=== PATIENT | female | born 2005 | race Caucasian/White ===

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

== ENCOUNTER 2024-03-21 16:30 | Emergency (ER) | payer BC, SELFPAY ==
[2024-03-21 16:47] VITALS: BP 115/65; PULSE 95; RESP 18; TEMP 37.2; O2SAT 100
--- NOTE | 2024-03-21 17:21 | ED.ABDPAIN ---
HPI - Abdominal Pain General Chief Complaint: Abdominal Pain Stated Complaint: Pain In Lower RT Side Time Seen by Provider: 03/21/24 17:21 Source: patient, RN notes reviewed and old records reviewed Mode of arrival: ambulatory Limitations: no limitations History of Present Illness HPI narrative: Patient presents with complaints of right lower quadrant abdominal pain that awakened her from sleep at about 4:00 a.m. this morning. She took Tylenol and Pepto-Bismol hoping that her symptoms would get better. She said she did have a little small window if improvement, tried to go to work. She reports that pain has been nagging all day. Pain has been bad enough that she has had no appetite, has not had anything to eat today. Symptoms worsened with movement. She is unsure of fever status, says that she had some chills last night when she woke up from her sleep. Denies any nausea or vomiting. Denies any change in bowel or bladder pattern. Has IUD in place, so unable to clearly define LMP. Related Data Home Medications Medication Instructions Recorded Confirmed bupropion HCl 150 mg 24 hr tablet, 150 mg PO DAILY 03/21/24 03/21/24 extended release Allergies Allergy/AdvReac Type Severity Reaction Status Date / Time No Known Allergies Allergy Mild Verified 03/21/24 16:42 Review of Systems Review of Systems: All systems reviewed & are unremarkable except as noted in HPI and below Constitutional: Constitutional: Reports no additional constitutional complaints ENT: Reports system reviewed and no additional complaints, except as documented Cardiovascular: Cardiovascular: Reports no additional cardiovascular complaints Respiratory: Respiratory: Reports no additional respiratory complaints Gastrointestinal: Gastrointestinal: Reports as per HPI, Reports no additional gastrointestinal complaints, Reports abdominal pain, Denies change in bowel habits, Denies change in stool character, Denies constipation, Denies diarrhea, Reports nausea and Denies vomiting Genitourinary: Genitourinary: Reports no additional female genitourinary complaints and Reports as per HPI [facility] Comments At the time of my signature, I reviewed and agree with the nursing past medical, surgical, social, and family history. There is no relevant family history pertinent to the patient complaint. Exam Const: General: cooperative, no acute distress, alert and awake Orientation/consciousness: oriented to person, oriented to place and oriented to time HENMT: Head: normal to inspection Resp: Effort & Inspection: normal respiratory effort and able to speak in complete sentences Auscultation: clear to auscultation bilaterally, no crackles, no rales, no rhonchi and no wheezes Cardio: Palpation: normal PMI Rate: regular rate Rhythm: regular rhythm Heart sounds: S1 normal heart sound present and S2 normal heart sound present GI: GI Palp: Yes abdominal tenderness (RLL), Yes Soft to palpation, Yes Guarding due to palpation present (GI) (RLL) and No Rigid due to palpation Auscultation: normal bowel sounds Neuro: General: oriented to person, oriented to place and oriented to time Cranial nerves: Yes CN's II-XII intact bilaterally Psych: Appearance: grossly normal Thought process: Normal thought process present Insight: Good insight present (Psych) Judgement: Good judgement present (Psych) Course Course Level of Care: Express Care Visit Vital Signs Vital signs: Vital Signs Temperature 98.9 F 03/21/24 16:47 Pulse Rate 95 03/21/24 16:47 Respiratory Rate 18 03/21/24 16:47 Blood Pressure 115/65 03/21/24 16:47 Pulse Oximetry 100 03/21/24 16:47 Oxygen Delivery Room Air 03/21/24 16:47 Temperature 98.9 F 03/21/24 16:47 Pulse Rate 95 03/21/24 16:47 Respiratory Rate 18 03/21/24 16:47 Blood Pressure 115/65 03/21/24 16:47 Pulse Oximetry 100 03/21/24 16:47 Oxygen Delivery Room Air 03/21/24 16:47 Reviewed Transfer Blake
== END 2024-03-21 17:30 | disposition short-term general hospital (02) ==
PROVIDERS: Emergency Provider Nurse Practitioner Family; PCP Physician Assistant
DX: R10.31 Right lower quadrant pain (principal); F41.9 Anxiety disorder, unspecified
CPT/HCPCS: 99212; G0463

== ENCOUNTER 2024-03-21 17:51 | Observation (INO) | payer BC, SELFPAY ==
--- NOTE | ~2024-03-21 | CT_ITS ---
EXAMINATION: CT abdomen pelvis w con DATE: 03/21/2024 21:55 INDICATION: RLQ abdominal pain TECHNIQUE: Computed tomography (CT) of the abdomen and pelvis was performed with 100 mL Omnipaque-350 intravenous contrast. Automated exposure control and iterative reconstruction technique were employe d. The dose-length product was 263.78 mGy-cm. COMPARISON: None. FINDINGS: Lower thorax: Unremarkable Liver: Normal. Biliary/Gallbladder: Gallbladder is normal. No bile duct dilation. Pancreas: No mass or duct dilation. Spleen: Normal. Adrenals:No mass. Kidneys: No suspicious mass, obstructing stone, or hydronephrosis. GI tract: Mild distal esophageal and gastric wall edema. No small or large bowel dilation. The append ix is dilated to 8 mm. No significant periappendiceal inflammatory change. Mesentery/Peritoneum: No ascites, mass, or free air. Retroperitoneum: No mass. Pelvis: Pelvic organs are within normal limits. Soft Tissues: Soft tissues and body wall unremarkable. Bones: No acute osseous finding. IMPRESSION: Mild esophagitis/gastritis. Dilated appendix without significant surrounding inflammatory change, may represent early appendiciti s in the appropriate clinical context. Reviewed, dictated and finalized at location K. IMPRESSION: Mild esophagitis/gastritis. Dilated appendix without significant surrounding inflammatory change, may repre sent early appendicitis in the appropriate clinical context.
[2024-03-21 17:53] VITALS: BP 113/91; PULSE 90; RESP 18; TEMP 36.6; O2SAT 100
--- NOTE | 2024-03-21 18:16 | ED.ABDPAIN ---
HPI - Abdominal Pain General Chief Complaint: Abdominal Pain <Aleshia Kern APRN - Last Filed: 03/21/24 20:21> Stated Complaint: Abdominal pain <Aleshia Kern APRN - Last Filed: 03/21/24 20:21> Time Seen by Provider: 03/21/24 19:30 <Aleshia Kern APRN - Last Filed: 03/21/24 20:21> Focused HPI:Patient is a 18-year-old female who presents to the ER with right lower quadrant pain. She reports the pain started this morning. Patient went to urgent care and they advised her to come to the ER. She endorses right lower quadrant pain that is constant. Patient also endorses back pain. She reports that she has no history of ovarian cysts and still has her appendix. Patient has no pertinent medical history to this ER visit. GENERAL: Well-appearing, well-nourished, and in no acute distress. HEAD: Normocephalic, atraumatic. CHEST: Clear to auscultation. ?No respiratory distress. No CVA tenderness. HEART: Regular rate and rhythm.? ABDOMEN: Tender RLQ with palpation, positive Psoas, positive McBurneys, +BS x 4 quadrants NEURO: ?Alert and oriented x3. Patient screened in triage and initial orders placed.? ?Additional care and disposition to be based upon?diagnostic testing and treatment. <Aleshia Kern APRN - Last Filed: 03/21/24 20:21> Related Data Home Medications: Home Medications Medication Instructions Recorded Confirmed bupropion HCl 150 mg 24 hr tablet, 150 mg PO DAILY 03/21/24 03/22/24 extended release <Aleshia Kern APRN - Last Filed: 03/21/24 20:21> Allergies/Adverse Reactions: Allergies Allergy/AdvReac Type Severity Reaction Status Date / Time No Known Allergies Allergy Mild Verified 03/21/24 16:42 <Aleshia Kern APRN - Last Filed: 03/21/24 20:21> Review of Systems Review of Systems: All systems as dictated in HPI <Bi Gutierrez PA-C - Last Filed: 03/22/24 03:51> PMFSH Family History Family History: Family History (Updated 03/22/24 @ 01:46 by Vee Villegas) Grandparent Cerebrovascular accident Acute myocardial infarction Grandparent Congestive heart failure Grandparent Brain tumor <Aleshia Kern APRN - Last Filed: 03/21/24 20:21> Social History Social History: Social History Smoking status: Never smoker Alcohol intake: never Substance use: never Do You Feel Safe in your Home?: Yes Lack of Transportation: No Lack of Food: Never True Current Housing: I Have Housing Concerned About Future Housing: No Difficulty Paying Gas/Electric Bills: No Difficulty Paying for Meds: No Currently Unemployed: No Education: High School Diploma/GED Difficulty w/ Childcare or Family Care: No Spiritual care concerns: No <Aleshia Kern APRN - Last Filed: 03/21/24 20:21> Exam Narrative: GENERAL: Well-appearing, well-nourished, and in no acute distress. HEAD: Normocephalic, atraumatic. EYES: PERRLA and EOMI. ENT: Nares clear, no rhinorrhea or epistaxis. Mucous membranes moist. Oropharynx without tonsillar hypertrophy exudate or other lesions. NECK: Supple. No adenopathy or masses. CHEST: No respiratory distress. Clear to auscultation. No wheezes rales or rhonchi HEART: Regular rate and rhythm. No murmur heard. Normal peripheral pulses. ABDOMEN: Point tenderness at McBurney's point. Positive psoas sign. Negative Alvarez sign. Soft, nondistended, normal active bowel sounds. MSK: Normal range of motion. No edema. SKIN: Warm, dry, no rash. NEURO: Alert and oriented x4. No focal deficits. PSYCH: Normal mood and affect. <Bi Gutierrez PA-C - Last Filed: 03/22/24 03:51> Course DELPHI PROGRAMMER/PA Physician Supervision Patient's HPI, Exam, and MDM were reviewed and I agreed with the workup and disposition done in the emergency department by the MLP. Patient was evaluated independently and general surgery was contacted by the midlevel provider. Patricia
[2024-03-21 21:11] LABS: Basophils Percent Auto 0.3 % (0.2-1.2); Eosinophils Absolute Auto 0.1 K/mm3 (0-0.3); Eosinophils Percent Auto 0.7 % (0-4.4); Hematocrit 41.1 % (37.0-47.0); Hemoglobin 13.3 g/dL (12.0-15.0); Immature Granulocyte Absolute 0.03 K/mm3 (0.00-0.031); Immature Granulocyte Percent A 0.2 % (0-0.5); Lymphocytes Absolute Auto 2.99 K/mm3 (0.9-3.2); Lymphocytes Percent Auto 24.9 % (18.3-44.2); Mean Corpuscular HGB Conc 32.4 g/dl (32-36); Mean Corpuscular Hemoglobin 28.2 pg (26-34); Mean Corpuscular Volume 87.3 fl (80-100); Monocytes Absolute Auto 0.8 K/mm3 (0.1-0.6); Monocytes Percent Auto 6.8 % (2.6-8.5); Neutrophils Absolute Auto 8.1 K/mm3 (1.3-6.7); Neutrophils Percent Auto 67.1 % (45.5-73.1); Platelet Count Result 263 k/mm3 (150-375); Red Blood Count 4.71 M/mm3 (4.2-5.4); Red Cell Distribution Width 14.2 % (11.5-14.5)
[2024-03-21 21:12] LABS: Add Urine Microscopic? NO; Appearance Urine Clear (Clear); Bilirubin Urine Negative (Negative); Blood Urine Negative (Negative); Color Urine Yellow (Yellow); Glucose Urine UA Negative (Negative); Ketones Urine 3+ mg/dL (Negative); Leukocyte Esterase Ur Negative LEU/UL (Negative); Nitrate Urine Negative (Negative); Protein Urine Negative (Negative); Specific Grav Ur 1.022 (1.001-1.035); pH Urine 7.5 (5.0-9.0)
[2024-03-21 21:22] LABS: Alanine Aminotransferase 14 U/L (6-35); Albumin Level 4.8 g/dL (3.7-5.6); Alkaline Phosphatase 80 U/L (45-116); Anion Gap 13 mmol/L (4-12); Aspartate Amino Transferase 24 U/L (14-36); Bilirubin,Total 1.1 mg/dL (0.2-1.3); Blood Urea Nitrogen 9 mg/dL (8-21); Calcium 9.3 mg/dL (8.9-10.7); Carbon Dioxide 23 mmol/L (22-30); Chloride 102 mmol/L (98-107); Estimated CRCL calculation 115 ml/min; Estimated Glomerular Filt Rate > 60; Glucose 72 mg/dL (65-110); Lipase 124 U/L (23-300); Partial Thromboplastin Time 32.4 Seconds (22.3-36.8); Potassium 3.7 mmol/L (3.4-5.0); Prothrombin Time 14.1 Seconds (11.1-14.7); Sodium 138 mmol/L (134-143)
[2024-03-21 21:23] LABS: Lactic Acid Reflex 1.1 mmol/L (0.7-2.0)
[2024-03-21 23:14] VITALS: BP 119/68; PULSE 99; RESP 18; O2SAT 100
[2024-03-21] MEDS: ONDANSETRON INJ 4 MG/2 ML VIAL IV PUSH ×2 (23:20→23:38)
[2024-03-21] MEDS: SODIUM CHLORIDE 0.9% IV 1,000 ML 999 ML IV CONT (23:20)
[2024-03-21] MEDS: PIPERACILLN/TAZ 3.375GM/NS50ML 3.375 GM/50 ML BAG IVPB (23:52)
[2024-03-22] VITALS (11 sets, daily range): BP systolic 96–115; BP diastolic 54–84; PULSE 57–101; RESP 12–22; TEMP 36.3–36.7; O2SAT 99–100; BMI 21.5
--- NOTE | 2024-03-22 | PC.NURSE ---
Pt states refused pain medications but wanted to have them ordered just incase.
[2024-03-22] MEDS: SODIUM CHLORIDE 0.9% IV 1,000 ML 125 ML IV CONT (01:00)
--- NOTE | 2024-03-22 01:43 | ADMGEN ---
This patient, Poppy Hutchinson, was admitted to [facility] Surg Room 301-01. Patient/family oriented to hospital policies and general routines including ID bracelet, bed and alarms, visiting hours, pain management, procedures, bathroom and other care routines, personal items, smoking policy, room service/diet, and visiting hours. Information on how to activate the Rapid Response Team has been discussed. Patient/Family are encouraged to report perceived risks to care and to ask questions if they do not understand what they are told or what they should do.
[2024-03-22] MEDS: PIPERACILLN/TAZ 3.375GM/NS50ML 3.375 GM/50 ML BAG IVPB ×2 (05:43→11:48)
--- NOTE | 2024-03-22 06:00 | ECG_ITS ---
Test Date: 2024-03-22 00:13:09 Measurements Intervals [place] Rate: 68 P: 47 WI: 141 QRS: 48 QRSD: 90 T: 52 QT: 398 QTc: 425 Interpretive Statements SINUS RHYTHM NORMAL ECG No previous ECG available for comparison Electronically Signed On 03-22-2024 09:16:40 CDT by Bam Escalera D.O.
--- NOTE | 2024-03-22 10:23 | PM.SD2 ---
Same Day Admit/Disch: [facility] History of Present Illness Chief complaint: Appendicitis Narrative: Poppy Hutchinson is a 18 year old female who began having fairly central abdominal pain that, over time, moved to the right lower quadrant. The pain was persistent. She went to an urgent care who advised her to go to the emergency room. In the emergency room she was noted to have right lower quadrant tenderness [place] [phone] scan showed an 8 mm appendix with suggestion of early appendicitis. Patient has been observed overnight. She continues to have right lower quadrant pain. Her pain is not severe but has been persistent. After evaluation and discussion, she is taken to surgery now for laparoscopic appendectomy. [facility], [facility] Family History Family History Grandparent Cerebrovascular accident Acute myocardial infarction Grandparent Congestive heart failure Grandparent Brain tumor Social History Social History Smoking status: Never smoker Alcohol intake: never Substance use: never Do You Feel Safe in your Home?: Yes Lack of Transportation: No Lack of Food: Never True Current Housing: I Have Housing Concerned About Future Housing: No Difficulty Paying Gas/Electric Bills: No Difficulty Paying for Meds: No Currently Unemployed: No Education: High School Diploma/GED Difficulty w/ Childcare or Family Care: No Spiritual care concerns: No Same Day Admit/Disch: Med Pre-admit Medications Home Medications Medication Instructions Recorded Confirmed Type bupropion HCl 150 mg 24 hr tablet, 150 mg PO DAILY 03/21/24 03/22/24 History extended release oxycodone-acetaminophen 5 mg-325 0.5 - 1 tablet PO Q6H PRN pain #10 03/22/24 Rx mg tablet tabs Review of Systems Review of Systems All systems reviewed & are unremarkable except as noted in HPI and below (HPI) Exam Const: General: comfortable, no acute distress, alert and awake HENMT: Head: normocephalic and atraumatic Mouth: Yes Normal oral and palatal mucosa present Eyes: Conjunctivae: conjunctivae normal Pupils: Equal, round and reactive pupils present EOM: EOMs intact bilaterally Neck: Neck: normal visual inspection, no lymphadenopathy and nontender Resp: Effort & Inspection: normal respiratory effort Auscultation: clear to auscultation bilaterally Cardio: Rate: regular rate Rhythm: regular rhythm Heart sounds: no gallops, no murmurs and no rubs GI: Inspection: normal to inspection, no edema, non-distended, scaphoid and no scars GI Palp: Yes Soft to palpation, Yes Tenderness to palpation present (GI) (With guarding), Yes Guarding due to palpation present (GI), No Hepatomegaly present, No Splenomegaly present, No Hernia present, No Palpable mass present, Yes Rebound tenderness present and Yes Other GI palpation findings present (Left lower quadrant tenderness referred to the right lower quadrant) Auscultation: normal bowel sounds Skin: Lesions: no lesions Rashes: no rashes Neuro: General: no focal motor deficits and CN's II-XI intact bilaterally Cranial nerves: Yes Equal, round and reactive pupils present, Yes Bilaterally intact EOM present, Yes facial symmetry and Yes Midline tongue present Speech: normal speech Motor exam (neuro): 5/5 motor strength present throughout and Motor abnormalities not present Extrem: General: no clubbing, cyanosis or edema and edema Psych: Affect: normal affect Thought process: Normal thought process present Insight: Good insight present (Psych) DS: Data Data Completed and Pending Labs on day of discharge: Labs from last 24 hours 03/21/24 03/21/24 21:03 20:59 WBC 12.0 H RBC 4.71 Hgb 13.3 Hct 41.1 MCV 87.3 MCH 28.2 MCHC 32.4 RDW 14.2 Plt Count 263 MPV 11.0 H Immature Gran % (Auto) 0.2 Neut % (Auto) 67.1 Lymph % (Au
--- NOTE | 2024-03-22 10:26 | WPDANESEPPF ---
Anes - Initial Pre Proc Eval Procedure: Operation Date: 03/22/24 11:00 Proposed Procedures p Laparoscopic Appendectomy, Possible Open - Kurtis Savage MD Date/Time: 03/22/24 10:26 Surgeon: Kurtis Savage MD Pre Op Diagnosis: Appendicitis Patient Data Age: 18 Gender: F Height: 1.65 m Weight: 58.7 kg Last Vital Signs Temp 36.3 C L 03/22/24 06:00 Pulse 78 03/22/24 06:00 Resp 12 03/22/24 06:00 BP 100/55 L 03/22/24 06:00 Pulse Ox 100 03/22/24 06:00 O2 Del Method Room Air 03/22/24 08:00 Allergies Allergy/AdvReac Type Severity Reaction Status Date / Time No Known Allergies Allergy Mild Verified 03/21/24 16:42 Home Medications Medication Instructions Recorded Confirmed Type bupropion HCl 150 mg 24 hr tablet, 150 mg PO DAILY 03/21/24 03/22/24 History extended release Laboratory Tests 03/21/24 03/21/24 20:59 21:03 WBC 12.0 H K/mm3 (4.5-10.0) RBC 4.71 M/mm3 (4.2-5.4) Hgb 13.3 g/dL (12.0-15.0) Hct 41.1 % (37.0-47.0) MCV 87.3 fl (80-100) MCH 28.2 pg (26-34) MCHC 32.4 g/dl (32-36) RDW 14.2 % (11.5-14.5) Plt Count 263 k/mm3 (150-375) MPV 11.0 H fl (7.4-10.4) Immature Gran % (Auto) 0.2 % (0-0.5) Neut % (Auto) 67.1 % (45.5-73.1) Lymph % (Auto) 24.9 % (18.3-44.2) [place] % (Auto) 6.8 % (2.6-8.5) Eos % (Auto) 0.7 % (0-4.4) Baso % (Auto) 0.3 % (0.2-1.2) Lymph # (Auto) 2.99 K/mm3 (0.9-3.2) [place] # (Auto) 0.8 H K/mm3 (0.1-0.6) Eos # (Auto) 0.1 K/mm3 (0-0.3) Baso # (Auto) 0.0 K/mm3 (0.0-0.1) Abs Immat Gran (auto) 0.03 K/mm3 (0.00-0.031) Absolute Neuts (auto) 8.1 H K/mm3 (1.3-6.7) Absolute Nucleated RBC 0.000 K/mm3 (0.0-0.012) Nucleated RBC % 0.0 % (0.0-0.2) PT 14.1 Seconds (11.1-14.7) INR 1.0 APTT 32.4 Seconds (22.3-36.8) Sodium 138 mmol/L (134-143) Potassium 3.7 mmol/L (3.4-5.0) Chloride 102 mmol/L (98-107) Carbon Dioxide 23 mmol/L (22-30) Anion Gap 13 H mmol/L (4-12) BUN 9 mg/dL (8-21) Creatinine 0.60 L mg/dL (0.7-1.0) Estim Creat Clear Calc 115 ml/min Estimated GFR > 60 (59 - ) Glucose 72 mg/dL (65-110) Lactic Acid 1.1 mmol/L (0.7-2.0) Calcium 9.3 mg/dL (8.9-10.7) Total Bilirubin 1.1 mg/dL (0.2-1.3) AST 24 U/L (14-36) ALT 14 U/L (6-35) Alkaline Phosphatase 80 U/L (45-116) Total Protein 8.0 g/dL (6.3-8.6) Albumin 4.8 g/dL (3.7-5.6) Lipase 124 U/L (23-300) Urine Color Yellow (Yellow) Urine Appearance Clear (Clear) Urine pH 7.5 (5.0-9.0) Ur Specific [place] 1.022 (1.001-1.035) Urine Protein Negative mg/dL (Negative) Urine Glucose (UA) Negative mg/dL (Negative) Urine Ketones 3+ H mg/dL (Negative) Ur Blood (Man) Negative (Negative) Urine Nitrate Negative (Negative) Urine Bilirubin Negative (Negative) Urine Urobilinogen 1.0 mg/dL (<2.0) Leukocyte Esterase Rfl Negative DANTE/UL (Negative) Patient hx anesthesia problems: none Family hx anesthesia problems: none Results Review: All pre-operative results and documents have been reviewed as part of the pre-operative evaluation. [facility] Family History Family History Grandparent Cerebrovascular accident Acute myocardial infarction Grandparent Congestive heart failure Grandparent Brain tumor Social History Social History Smoking status: Never smoker Alcohol intake: never Substance use: never Do You Feel Safe in your Home?: Yes Lack of Transportation: No Lack of Food: Never True [place]
--- NOTE | 2024-03-22 10:30 | WPDHPUPDATE1 ---
History and Physical Update Update Date/Time: 03/22/24 10:30 History and Physical has been reviewed, including an updated exam of the patient. There are NO changes in the patient's condition. Risks, benefits, and alternatives have been discussed and questions answered. Patient agrees to proceed with procedure.
[2024-03-22] MEDS: BUPIVACAINE/EPINEPHRINE 0.5% 50 ML VIAL 20 ML INFILTRATE (10:58)
--- NOTE | 2024-03-22 11:13 | P.OP_ITS ---
Procedure Note - Detailed Date of Procedure 03/22/24 Pre-op Diagnosis Appendicitis Post-op Diagnosis Same Procedure Performed Laparoscopic appendectomy Surgeon Kurtis Savage MD Bilingual Executive Assistant [place] Anesthesia General and Local Indications Patient had right lower quadrant pain with guarding and rebound tenderness. [place] [phone] scan showed evidence of early acute appendicitis. She chose to proceed with surgery rather than medical therapy. Findings Early acute appendicitis in the distal 2/3 of the appendix Description of Procedure Patient was taken to surgery and induced into general anesthesia. The abdomen is prepped and draped. Trocars were placed in usual fashion using [email or web address] optical trocars and a 5 mm camera. Patient was placed in Trendelenburg with the right-side elevated. The appendix was found easily. It was definitely inflamed over its distal half to 2/3 but the proximal portion the appendix looked relatively normal. There was no evidence of perforation, abscess, or gangrenous change. The appendix was elevated and exposed. Cautery was used to carefully divide the mesoappendix. The appendiceal artery was thoroughly cauterized and divided. We continued and eventually skeletonized the base of the appendix. The base the appendix was then ligated with a Vicryl endoloop. The appendix was amputated just above the ligature and the mucosa of the appendiceal stump was cauterized. The appendix was placed immediately in an Endo-Catch bag and retrieved through the 10 11 left lower quadrant trocar site. We then replaced this trocar and reviewed the operative area of dissection as well as the appendiceal stump. There was no evidence of bleeding or other problems. We then evacuated CO2 and removed the trocar sleeves. Skin wounds were closed with subcuticular 4-0 Monocryl skin suture. The wounds were dressed with Exofin surgical adhesive. Patient was awakened and taken to recovery in good condition. Sponge and needle counts were correct x2. Estimated Blood Loss -5 Pathology Yes (Appendix) Complications None Condition Stable Disposition PACU [facility] Billing Surgery - Charge Forward: Surgery Billing (Laparoscopic appendectomy)
[2024-03-22] MEDS: LACTATED RINGERS 1,000 ML 30 ML IV CONT (11:28)
--- NOTE | 2024-03-22 13:59 | ECG_ITS ---
Test Date: 2024-03-22 14:09:11 Measurements Intervals [place] Rate: 75 P: 47 MN: 137 QRS: 16 QRSD: 90 T: 47 QT: 373 QTc: 419 Interpretive Statements SINUS RHYTHM WITH SINUS ARRHYTHMIA BASELINE ARTIFACT- I, II, AVR, AVL, AVF NORMAL ECG Compared to ECG 03/22/2024 00:13:09 No significant changes Electronically Signed On 03-22-2024 16:44:48 CDT by Bam Escalera D.O.
[2024-03-22] MEDS: ACETAMINOPHEN 500 MG TABLET PO (14:06)
--- NOTE | 2024-03-22 15:59 | PC.NURSE ---
at 1350 pt complained of chest pain/pressure. Pt was informed that sometimes the gas they use in surgery will cause pt to have gas pains in chest. Pt vitals normal. informed surgeon about chest pain. surgeon stated that it was probably gas pain but to order ECG. If ECG ok and pt is having minimal pain, ok to discharge. ECG obtained and it was not concerning. also pt having minimal pain. pt was then stated she would like to d/c. Pt was instructed that sometimes walking may help. pt walked halls before d/c.
[2024-03-24 14:24] LABS: BEDSIDEPREGUCG Negative (Negative)
== END 2024-03-22 14:36 | disposition home or self-care (01) ==
LOC: ANHED 23:55 → ANH3MEDSUR 03-22 00:33 → ANHED 03-24 09:56 → ANH3MEDSUR 03-24 09:57
PROVIDERS: Registered Nurse; Admitting Provider Surgery; Emergency Provider Physician Assistant; PCP Physician Assistant; Visit Provider Surgery
PROC: 0DTJ4ZZ Resection of Appendix, Percutaneous Endoscopic Approach (ICD-10-PCS; CPT 44970; principal; 2024-03-22 11:00)
DX: K35.30 Acute appendicitis with localized peritonitis, without perforation or gangrene (principal)
CPT/HCPCS: 44970; 36415; 74177; 80053; 81003; 81025; 83605; 83690; 85025; 85610; 85730; 87040; 88304; 93005; 96365; 96367; 96375; 99285; A9270; G0378; G0379; J0330; J0696; J1100; J1170; J1200; J2250; J2371; J2405; J2543; J2704; J3010; J7030; J7120; Q9967

== ENCOUNTER 2024-07-18 21:08 | Emergency (ER) | payer BC, SELFPAY ==
[2024-07-18 21:09] VITALS: BP 104/72; PULSE 88; RESP 16; TEMP 36.4; O2SAT 100
--- OUTSIDE RECORDS SUMMARY | 2024-07-18 21:09 | XMS_ITS | Clinical Summary ---
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 Gender Identity Not on file Sexual Orientation Not on file Plan of Treatment Health Maintenance Due Date Last Done Comments Depression Screening 2004 Hepatitis C Screening 2004 Regular Well Visit/Exam 18-64 2022 Covid-19 Vaccine (3 2023-2 5 season) 2024 10/11/2020, 09/20/2020 Influenza Vaccine (#1) 2024 04/03/2023 DTaP/Tdap/Td Vaccine (7 - Td or Tdap) 01/12/2025 01/12/2015, 01/06/2010, 09/10/2006, Additional history exists Pneumococcal vaccine <65 Completed 006, 2004, 2004, Additional history exists Varicella Vaccines Completed 01/06/2010, 09/27/2005 HPV Vaccines Completed 12/11/2017, 01/30/2017 Meningococcal Vaccine Completed 12/06/2021, 016 Meningococcal B Vaccine Completed 12/21/2022, 12/06 Care Teams [employer] Fighter Pilot Relationship Specialty Start Date End Date Unknown, Notinfile PCP - General 07/25/23
--- OUTSIDE RECORDS SUMMARY | 2024-07-18 21:09 | XMS_ITS | Referral Summary ---
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
[2024-07-18 21:27] LABS: Basophils Percent Auto 0.2 % (0.2-1.2); Eosinophils Absolute Auto 0.1 K/mm3 (0-0.3); Hematocrit 43.1 % (37.0-47.0); Hemoglobin 13.7 g/dL (12.0-15.0); Immature Granulocyte Absolute 0.01 K/mm3 (0.00-0.031); Immature Granulocyte Percent A 0.2 % (0-0.5); Lymphocytes Absolute Auto 2.27 K/mm3 (0.9-3.2); Mean Corpuscular HGB Conc 31.8 g/dl (32-36); Mean Corpuscular Hemoglobin 28.4 pg (26-34); Mean Corpuscular Volume 89.4 fl (80-100); Mean Platelet Volume 10.1 fl (7.4-10.4); Monocytes Absolute Auto 0.7 K/mm3 (0.1-0.6); Monocytes Percent Auto 10.6 % (2.6-8.5); Neutrophils Absolute Auto 3.1 K/mm3 (1.3-6.7); Platelet Count Result 233 k/mm3 (150-375); Red Blood Count 4.82 M/mm3 (4.2-5.4); Red Cell Distribution Width 12.7 % (11.5-14.5); White Blood Count 6.1 K/mm3 (4.5-10.0)
[2024-07-18 21:36] LABS: Alanine Aminotransferase 15 U/L (6-35); Albumin Level 3.7 g/dL (3.5-5.1); Alkaline Phosphatase 66 U/L (38-126); Anion Gap 6 mmol/L (4-12); Aspartate Amino Transferase 21 U/L (14-36); Bilirubin,Total 0.4 mg/dL (0.2-1.3); Blood Urea Nitrogen 8 mg/dL (7-17); Calcium 8.2 mg/dL (8.4-10.2); Carbon Dioxide 27 mmol/L (22-30); Chloride 103 mmol/L (98-107); Estimated CRCL calculation 114 ml/min; Estimated Glomerular Filt Rate > 60; Glucose 84 mg/dL (65-110); Lipase 43 U/L (23-300); Potassium 3.2 mmol/L (3.4-5.0); Sodium 136 mmol/L (137-145)
[2024-07-18 23:40] LABS: BEDSIDEPREGUCG Negative (Negative)
[2024-07-18 23:43] LABS: Add Urine Microscopic? YES; Appearance Urine Cloudy (Clear); Bacteria Urine Rare /hpf; Bilirubin Urine Negative (Negative); Blood Urine Negative (Negative); Color Urine Yellow (Yellow); Glucose Urine UA Negative (Negative); Ketones Urine Negative (Negative); Leukocyte Esterase Ur Trace LEU/UL (Negative); Nitrate Urine Negative (Negative); Non Pathogenic Casts 0-2; Protein Urine Negative (Negative); RBC Urine 0-2 /hpf (0-2); Squamous Epithelial Cell Urine Moderate /hpf (Few); WBC Urine 0-5 /hpf (0-3); pH Urine 6.5 (5.0-9.0)
--- OUTSIDE RECORDS SUMMARY | 2024-07-19 00:03 | XMS_ITS | Referral Summary ---
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
--- OUTSIDE RECORDS SUMMARY | 2024-07-19 00:03 | XMS_ITS | Clinical Summary ---
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
[2024-07-19 00:09] LABS: Magnesium 1.9 mg/dL (1.6-2.3)
[2024-07-19] MEDS: SODIUM CHLORIDE 0.9% IV 1,000 ML 999 ML IV CONT (00:13)
[2024-07-19] MEDS: ONDANSETRON INJ 4 MG/2 ML VIAL IV PUSH (00:13)
--- NOTE | 2024-07-19 00:50 | ED_ITS ---
HPI - Nausea/Vomiting/Diarrhea General Chief complaint: Nausea/Vomiting/Diarrhea Stated complaint: I think I have norovirus Time Seen by Provider: 07/18/24 23:45 Source: patient Mode of arrival: ambulatory Limitations: no limitations History of Present Illness HPI Narrative: Patient is a 19-year-old female who presents the ED with report of nausea, vomiting, diarrhea. Patient reports she began feeling ill on . Reported having multiple episodes of vomiting and diarrhea. States she was unable to keep down any food or drink. States symptoms are improved slightly, but she still is unable to keep down any fluids. She states she feels very weak and dehydrated. Reported feeling slightly dizzy when walking up her stairs at home which prompted her presentation. Reports some abdominal soreness, denies fevers. Reports having cough and congestion for about 2 weeks, but states this seemed to be improving slightly as well. States her boyfriend had similar symptoms last week. Related Data Home Medications ?Medication ?Instructions ?Recorded ?Confirmed ?Last Taken ?Type bupropion HCl 150 mg 24 hr tablet, 150 mg PO DAILY 03/21/24 03/30/24 03/21/24 History extended release Allergies Allergy/AdvReac Type Severity Reaction Status Date / Time No Known Allergies Allergy Mild Verified 03/27/24 08:57 Review of Systems 2 Review of Systems: All systems reviewed & are unremarkable except as noted in HPI. All systems reviewed & are unremarkable except as noted in HPI and below PMFSH Family History Family History Grandparent Cerebrovascular accident Acute myocardial infarction Grandparent Congestive heart failure Grandparent Brain tumor Social History Social History Smoking status: Never smoker Alcohol intake: never Substance use: never Do You Feel Safe in your Home?: Yes Lack of Transportation: No Lack of Food: Never True Current Housing: I Have Housing Concerned About Future Housing: No Difficulty Paying Gas/Electric Bills: No Difficulty Paying for Meds: No Currently Unemployed: No Education: High School Diploma/GED Difficulty w/ Childcare or Family Care: No Spiritual care concerns: No Exam 2 Narrative: GENERAL: Well appearing, thin, non-toxic, in no acute distress. HEAD: Normocephalic, atraumatic. RESPIRATORY: Airway patent, respirations nonlabored. Clear to auscultation bilaterally, no rales, rhonchi, wheezing. CARDIOVASCULAR: Regular rate and rhythm without murmurs, rubs, or gallops. ABDOMINAL: Soft, minimal diffuse tenderness throughout abdomen, no significant focal tenderness. Nondistended. Normoactive BS. MUSCULOSKELETAL: Moves all extremities. No gross deformities. SKIN: Warm, dry, normal color. NEURO: A&O X3. Speech clear. PSYCHIATRIC: Appropriate mood and affect. Normal interaction. Course Vital Signs Vital signs: Vital Signs Temperature 97.5 F L 07/18/24 21:09 Pulse Rate 88 07/18/24 21:09 Respiratory Rate 16 07/18/24 21:09 Blood Pressure 104/72 07/18/24 21:09 Pulse Oximetry 100 07/18/24 21:09 Oxygen Delivery Room Air 07/18/24 21:09 Temperature 97.5 F L 07/18/24 21:09 Pulse Rate 88 07/18/24 21:09 Respiratory Rate 16 07/18/24 21:09 Blood Pressure 104/72 07/18/24 21:09 Pulse Oximetry 100 07/18/24 21:09 Oxygen Delivery Room Air 07/18/24 21:09 MDM - Nausea/Vomiting/Diarrhea MDM Narrative Medical decision making narrative: Patient presented to ED with nausea, vomiting, diarrhea. Feeling very weak and dehydrated. Vital signs are stable upon arrival. Patient is afebrile. Cbc without leukocytosis. Stable H&H. CMP with potassium of 3.2. Will replace. Magnesium within normal range. Otherwise stable electrolytes, stable kidney function. UA is clear. is negative. Viral swabs negative. Patient given fluids, nausea medicine in the ED. On re-evaluation, she is feeling improved. Able to tolerate PO intake. Feel she is safe for discharge home at this time. She has minimal tenderness on abdominal exam. No evidence of focal tenderness on serial exams. Low suspicion for surgical etiology. No indication for more advanced imaging at this time. Patient is in agreement with this. Discussed high likelihood of gastroenteritis. Will prescribe Bentyl and Zofran for home use. Advised patient to drinking plenty of fluids at home. Discussed strict return precautions. She agrees with plan and feels comfortable going home. Discharged in stable condition. Medical Records Attestation: I reviewed the patient's medical records. Lab Data Attestation: I reviewed the patient's lab results. 07/18/24 21:21 07/18/24 21:21 Labs: Lab Results 07/18/24 07/18/24 07/18/24 Range/Units 21:20 21:21 23:35 WBC 6.1 (4.5-10.0) K/mm3 RBC 4.82 (4.2-5.4) M/mm3 Hgb 13.7 (12.0-15.0) g/dL Hct 43.1 (37.0-47.0) % MCV 89.4 (80-100) fl MCH 28.4 (26-34) pg MCHC 31.8 L (32-36) g/dl RDW 12.7 (11.5-14.5) % Plt Count 233 (150-375) k/mm3 MPV 10.1 (7.4-10.4) fl Immature Gran % (Auto) 0.2 (0-0.5) % Neut % (Auto) 50.0 (45.5-73.1) % Lymph % (Auto) 37.0 (18.3-44.2) % Dickson % (Auto) 10.6 H (2.6-8.5) % Eos % (Auto) 2.0 (0-4.4) % Baso % (Auto) 0.2 (0.2-1.2) % Lymph # (Auto) 2.27 (0.9-3.2) K/mm3 Dickson # (Auto) 0.7 H (0.1-0.6) K/mm3 Eos # (Auto) 0.1 (0-0.3) K/mm3 Baso # (Auto) 0.0 (0.0-0.1) K/mm3 Abs Immat Gran (auto) 0.01 (0.00-0.031) K/mm3 Absolute Neuts (auto) 3.1 (1.3-6.7) K/mm3 Absolute Nucleated RBC 0.000 (0.0-0.012) K/mm3 Nucleated RBC % 0.0 (0.0-0.2) % Sodium 136 L (137-145) mmol/L Potassium 3.2 L (3.4-5.0) mmol/L Chloride 103 (98-107) mmol/L Carbon Dioxide 27 (22-30) mmol/L Anion Gap 6 (4-12) mmol/L BUN 8 (7-17) mg/dL Creatinine 0.60 L (0.7-1.0) mg/dL Estim Creat Clear Calc 114 ml/min Estimated GFR > 60 (59 - ) Glucose 84 (65-110) mg/dL Calcium 8.2 L (8.4-10.2) mg/dL Magnesium 1.9 (1.6-2.3) mg/dL Total Bilirubin 0.4 (0.2-1.3) mg/dL AST 21 (14-36) U/L ALT 15 (6-35) U/L Alkaline Phosphatase 66 (38-126) U/L Total Protein 6.0 L (6.3-8.2) g/dL Albumin 3.7 (3.5-5.1) g/dL Lipase 43 (23-300) U/L Urine Color Yellow (Yellow) Urine Appearance Cloudy H (Clear) Urine pH 6.5 (5.0-9.0) Ur Specific [place] 1.010 (1.001-1.035) Urine Protein Negative (Negative) mg/dL Urine Glucose (UA) Negative (Negative) mg/dL Urine Ketones Negative (Negative) mg/dL Ur Blood (Man) Negative (Negative) Urine Nitrate Negative (Negative) Urine Bilirubin Negative (Negative) Urine Urobilinogen 1.0 (<2.0) mg/dL Leukocyte Esterase Rfl Trace H (Negative) DANTE/UL Urine RBC 0-2 (0-2) /hpf Urine WBC 0-5 (0-3) /hpf Ur Squamous Epith Cells Moderate (Few) /hpf Urine Bacteria Rare /hpf Urine Casts 0-2 POC Urine HCG, Qual (Negative) Influenza A (RT-PCR) (Negative) Influenza B (RT-PCR) (Negative) RSV (RT-PCR) (Negative) SARS-CoV-2 RNA (RT-PCR) (Negative) 07/18/24 07/19/24 Range/Units 23:38 01:11 WBC (4.5-10.0) K/mm3 RBC (4.2-5.4) M/mm3 Hgb (12.0-15.0) g/dL Hct (37.0-47.0) % MCV (80-100) fl MCH (26-34) pg MCHC (32-36) g/dl RDW (11.5-14.5) % Plt Count (150-375) k/mm3 MPV (7.4-10.4) fl Immature Gran % (Auto) (0-0.5) % Neut % (Auto) (45.5-73.1) % Lymph % (Auto) (18.3-44.2) % Dickson % (Auto) (2.6-8.5) % Eos % (Auto) (0-4.4) % Baso % (Auto) (0.2-1.2) % Lymph # (Auto) (0.9-3.2) K/mm3 Dickson # (Auto) (0.1-0.6) K/mm3 Eos # (Auto) (0-0.3) K/mm3 Baso # (Auto) (0.0-0.1) K/mm3 Abs Immat Gran (auto) (0.00-0.031) K/mm3 Absolute Neuts (auto) (1.3-6.7) K/mm3 Absolute Nucleated RBC (0.0-0.012) K/mm3 Nucleated RBC % (0.0-0.2) % Sodium (137-145) mmol/L Potassium (3.4-5.0) mmol/L Chloride (98-107) mmol/L Carbon Dioxide (22-30) mmol/L Anion Gap (4-12) mmol/L BUN (7-17) mg/dL Creatinine (0.7-1.0) mg/dL Estim Creat Clear Calc ml/min Estimated GFR (59 - ) Glucose (65-110) mg/dL Calcium (8.4-10.2) mg/dL Magnesium (1.6-2.3) mg/dL Total Bilirubin (0.2-1.3) mg/dL AST (14-36) U/L ALT (6-35) U/L Alkaline Phosphatase (38-126) U/L Total Protein (6.3-8.2) g/dL Albumin (3.5-5.1) g/dL Lipase (23-300) U/L Urine Color (Yellow) Urine Appearance (Clear) Urine pH (5.0-9.0) Ur Specific [place] (1.001-1.035) Urine Protein (Negative) mg/dL Urine Glucose (UA) (Negative) mg/dL Urine Ketones (Negative) mg/dL Ur Blood (Man) (Negative) Urine Nitrate (Negative) Urine Bilirubin (Negative) Urine Urobilinogen (<2.0) mg/dL Leukocyte Esterase Rfl (Negative) DANTE/UL Urine RBC (0-2) /hpf Urine WBC (0-3) /hpf Ur Squamous Epith Cells (Few) /hpf Urine Bacteria /hpf Urine Casts POC Urine HCG, Qual Negative (Negative) Influenza A (RT-PCR) Negative (Negative) Influenza B (RT-PCR) Negative (Negative) RSV (RT-PCR) Negative (Negative) SARS-CoV-2 RNA (RT-PCR) Negative (Negative) Discharge Plan Discharge Clinical Impression: Gastroenteritis Nausea and vomiting Qualifiers: Vomiting type: unspecified Qualified Code(s): R11.2 - Nausea with vomiting, unspecified Patient Disposition: Home, Self-Care Condition: Stable Instructions: Antibiotic Form, Dehydration (ED), Gastroenteritis (ED), Acute Nausea and Vomiting (ED) Additional Instructions: Utilize zofran as needed for further nausea. Utilize Tylenol, Bentyl as needed for abdominal discomfort. Increase fluid intake. Recommend electrolyte rich fluids, gatorade, pedialyte, body armour. Recommend clear liquids or bland diet until symptoms improve, such as bananas, rice, applesauce, toast, or crackers. Follow up with your primary care doctor for further evaluation. Return to the ED if you experience worsening or severe symptoms, unable to keep down food or drink, severe pain, fevers, rectal bleeding, vomiting blood, or any other symptoms of concern. Patient Language: Nepali Prescriptions: New dicyclomine 20 mg tablet 20 mg PO TID PRN (Reason: Abdominal Discomfort) Qty: 15 0RF ondansetron 4 mg tablet,disintegrating 4 mg PO Q8H PRN (Reason: nausea and vomiting) Qty: 15 0RF No Action bupropion HCl 150 mg tablet extended release 24 hr 150 mg PO DAILY Follow-up/Referrals: Karina,DNAIELLA Persaud [Primary Care Provider] - Time of Disposition: 02:25
[2024-07-19 01:55] LABS: Influenza A QL RT-PCR Negative (Negative); Influenza B QL RT-PCR Negative (Negative); RSV RNA, RT-PCR Negative (Negative); SARS-CoV-2 RNA PCR Negative (Negative)
[2024-07-19] MEDS: POTASSIUM CHLORIDE 20 MEQ ER TABLET 40 MEQ PO (02:03)
[2024-07-19 02:45] VITALS: BP 99/71; PULSE 68; RESP 14; O2SAT 100
== END 2024-07-19 02:46 | disposition home or self-care (01) ==
PROVIDERS: Emergency Medicine; Emergency Provider Physician Assistant; PCP Physician Assistant
DX: K52.9 Noninfective gastroenteritis and colitis, unspecified (principal); Z20.822 Contact with and (suspected) exposure to COVID-19
CPT/HCPCS: 36415; 80053; 81001; 81025; 83690; 83735; 85025; 87637; 96361; 96374; 99284; A9270; J2405; J7030

== ENCOUNTER 2024-09-30 17:05 | Emergency (ER) | payer BC, SELFPAY ==
--- NOTE | ~2024-09-30 | CT_ITS ---
History: Headache PROCEDURE: CT head without contrast. COMPARISON: None TECHNIQUE: Axial imaging of the head performed from the skull base to the vertex without IV contrast. Sagittal a nd coronal reformations obtained. DLP: 681 mGy-cm FINDINGS: The ventricles are normal in size, shape and position. There is no mass, mass effect or midline shift. There is no abnormal extra-axial fluid collection or intracranial hemorrhage. Visualized paranasal sinuses are clear. The mastoid air cells are well aerated. No acute displaced fractures within the overlying cranium. Impression: No acute intracranial hemorrhage or suspicious mass effect. Reviewed, dictated and finalized at location A. Impression: No acute intracranial hemorrhage or suspicious mass effect.
[2024-09-30 17:07] VITALS: BP 112/66; PULSE 84; RESP 18; TEMP 36.1; O2SAT 98
--- OUTSIDE RECORDS SUMMARY | 2024-09-30 17:15 | XMS_ITS | Encounter Summary ---
Author Organization [facility] Address [address] [place] [address] Care Team Providers Care Dispatcher Tow Truck Name Role Phone Cori Collins PA-C Primary Care Provider +1- [phone] Reason for Visit * Reason Comments Headache Encounter Details Date Type Department Care Team (Late st Contact Info) Description 09/29/2024 9:55 PM CDT - 09/30/2024 12:51 AM CDT Emergency [facility] Emergency [address] [place] [address] Areli Kathleen MD [address] [place] [id number] Headache Discharge Disposition: Home or Self Care (Routine Discharge) Social History Tobacco Use Types Packs/Day Years Used Date Smoking Tobacco: Never Assessed Comments Unknown Sex and Gender Information Value Date Recorded Sex Assigned at Female 09/30/2024 12:15 AM CDT Legal Sex Female 8:18 PM CDT Gender Identity Not on file Sexual Orientation Not on file documented as of this encounter Last Filed Vital Signs Vital Sign Reading Time Taken Comments Blood Pressure 103/79 09/29/2024 11:30 PM CDT Pulse 66 09/29/2024 11:10 PM CDT Temperature 37.6 C (99.6 F) 09/29/2024 8:21 PM CDT Respiratory Rate 18 09/29/2024 8:21 PM CDT Oxygen Saturation 97% 09/29/2024 11:30 PM CDT Inhaled Oxygen Concentration - - Weight 65.5 kg (144 lb 6.4 oz) 09/29/2024 8:21 P M CDT Height 165.1 cm (5' 5 ) 09/29/2024 8:21 PM CDT Body Mass Index 24.03 09/29/2024 8:21 PM CDT documented in this encounter Discharge Instructions * Discharge Instructions* Lazarus Dash MD - 09/29/2024 11:58 PM CDT Your lab work did not show any concerns for infection or electrolyte abnormalities We recommend resting and staying well-hydrated at home It is important that you call your primary care physician to schedule an appointment regarding today's visit the ER Return for any worsening signs or symptoms including confusion, severe headache, vision changes, fever, chills, neck pain, back pain, abdominal pain, chest pain, shortness of breath, difficulty breathing or any other worsening signs or symptoms * Attachments The following attachments cannot be sent through Care Everywhere. * Headache, Adult ED (Kenyan) * Migraine in adults ([place]) documented in this encounter ED Notes * [place] - 09/29/2024 8:19 PM CDT Pt arrives to ED with c/o migraines for the past 3 days with dizziness. Pt states she has tried migraine meds and they have not worked. Pt states her family has hx of cysts and brain tumors. documented in this encounter Plan of Treatment Not on file documented as of this encounter Procedures Procedure Name Priority Date/Time Associated Diagnosis Comments COMPREHENSIVE METABOLIC PANEL STAT 09/29/2024 10:58 PM CDT HCG QUANT (SERUM)-CHORIONIC GONADOTROPIN STAT 09/29/2024 10:58 PM CDT CBC W/DIFF AUTOMATED STAT 09/29/2024 10:58 PM CDT documented in this encounter Results * HCG QUANT SERUM - CHORIONIC GONADOTROPIN () (09/29/2024 10:58 PM CDT) [facility] HCG QUANTITATIVE <1 MIU/ML 09/30/19 11:44 PM CDT [facility] Comment: <5 IS NEGATIVE 5-25 IS BORDERLINE >25 IS POSITIVE ASSAY PERFORMED BY CHEMILUMINESCENCE METHODOLOGY USING SIEMENS DIMENSION VISTA REAGENT. PATIENT RESULTS DETERMINED BY ASSAYS USING DIFFERENT MANUFACTURERS FOR METHODS MAY NOT BE COMPARABLE. 09/29/2024 10:5 8 PM CDT us Areli Kathleen MD LABORATORY Fin al Result [facility] [address] [place] [address], [id number] * COMPREHENSIVE METABOLIC PANEL (09/29/2024 10:58 PM CDT) [facility] SODIUM S/P/B 139 136 - 145 MMOL/L 09/29/2024 11:42 PM CDT [facility] POTASSIUM S/P/B 3.5 3.5 - 5.1 MMOL/L 09/29/2024 11:42 PM CDT [facility] CHLORIDE S/P/B 107 97 - 115 MMOL/L 09/29/2024 11:42 PM CDT [facility] CO2 26.4 21.0 - 32.0 MMOL/L 09/29/2024 11:42 PM CDT [facility] GLUCOSE 83 74 - 106 MG/DL 09/29/2024 11:42 PM CDT [facility] BUN 14 7 - 18 MG/DL 09/29/2024 11:42 PM CDT [facility] CREATININE S/P/B 0.74 0.55 - 1.02 MG/DL 09/29/2024 11:42 PM CDT [facility] CALCIUM S/P/B 9.2 8.5 - 10.1 MG/DL 09/29/2024 11:42 PM CDT [facility] BILIRUBIN TOTAL S/P/B 0.4 0.2 - 1.0 MG/DL 09/29/2024 11:42 PM CDT [facility] ALKALINE PHOSPHATASE S/P/B 86 52 - 144 U/L 09/29/2024 11:42 PM CDT [facility] AST 24 15 - 37 U/L 09/29/2024 11:42 PM CDT [facility] ALT 30 13 - 56 U/L 09/29/2024 11:42 PM CDT [facility] TOTAL PROTEIN S/P/B 7.1 6.4 - 8.2 G/DL 09/29/2024 11:42 PM CDT [facility] ALBUMIN S/P/B 3.7 3.4 - 5.0 G/DL 09/29/2024 11:42 PM CDT [facility] ANION GAP 5.6 2.0 - 10.0 MMOL/L 09/29/2024 11:42 PM CDT [facility] OSMOLALITY (CALC) 288 MOSM/KG 025 11:42 PM T [facility] Comment:REFERENCE RANGE NOT ESTABLISHED GFR ESTIMATE >90 >90 ML/MIN/1. 73 M2 09/29/2024 11:42 PM T [facility] GFR NOTES GFR REFERENCE S: 09/29/2024 11:42 PM T [facility] Comment: THE ESTIMATED GFR IS CALCULATED USING THE 2020 CKD-EPI EQUATION. THE FOLLOWING CATEGORIES FOR GRADING RENAL FUNCTION ARE RECOMMENDED BY THE INTERNATIONAL SOCIETY OF NEPHROLOGY (KDIGO 2012 CLINICAL PRACTICE GUIDELINE). G1,NORMAL OR HIGH: >89 ml/min/1.73 m2 G2,MILDLY DECREASED: 60-89 ml/min/1.73 m2 G3A,MILDLY TO MODERATELY DECREASED: 45-59 ml/min/1.73 m2 G3B,MODERATELY TO SEVERELY DECREASED: 30-44 ml/min/1.73 m2 G4,SEVERELY DECREASED: 15-29 ml/min/1.73 m2 G5,KIDNEY FAILURE: <15 ml/min/1.73 m2 09/29/2024 10:5 8 PM CDT Keturah Garcia NP LABORATORY Final Result [facility] [address] [place] [address], [id number] * (ABNORMAL) CBC W/DIFF AUTOMATED (09/29/2024 10:58 PM CDT) WBC 9.07 4.00 - 10.80 x10'3/uL 09/29/2024 11:33 PM CDT [facility] RBC 4.32 4.10 - 5.40 x10'6/uL 09/29/2024 11:33 PM CDT [facility] HGB 12.4 12.0 - 16.0 G/DL 09/29/2024 11:33 PM CDT [facility] HCT 38.3 36.0 - 47.0 % 09/29/2024 11:33 PM CDT [facility] MCV 88.7 78.0 - 100.0 FL 09/29/2024 11:33 PM CDT [facility] MCH 28.7 27.0 - 31.0 PG 09/29/2024 11:33 PM CDT [facility] MCHC 32.4(L) 33.0 - 36.0 G/DL 09/29/2024 11:33 PM CDT [facility] RDW 13.2 11.5 - 14.5 % 09/29/2024 11:33 PM CDT [facility] PLT 266 150 - 350 x10'3/uL 09/29/2024 11:33 PM CDT [facility] MPV 10.8(H) 7.4 - 10.4 FL 09/29/2024 11:33 PM CDT [facility] DIFFERENTIAL TYPE AUTOMATED DIFFERENTIAL 09/29/2024 11:33 PM CDT [facility] SEG NEUTROPHILS 48.3 % 11:33 PM CDT [facility] LYMPHOCYTES 42.7 % 09/29/2024 11:33 PM CDT [facility] MONOCYTES 6.0 % 09/29/2024 11:33 PM CDT [facility] EOSINOPHILS 1.9 % 09/29/2024 11:33 PM CDT [facility] BASOPHILS 0.4 % 09/29/2024 11:33 PM CDT [facility] IMMATURE GRANS % 0.7 % 09/30/19 11:33 PM CDT [facility] ABS. NEUTROPHILS 4.39 1.60 - 8.30 x10'3/uL 09/29/2024 11:33 PM CDT [facility] ABS. LYMPHOCYTES 3.87 0.80 - 4.70 x10'3/uL 09/29/2024 11:33 PM CDT [facility] ABS. MONOCYTES 0.54 0.00 - 1.50 x10'3/uL 09/29/2024 11:33 PM CDT [facility] ABS. EOSINOPHILS 0.17 0.00 - 0.40 x10'3/uL 09/29/2024 11:33 PM CDT [facility] ABS. BASOPHILS 0.04 0.00 - 0.20 x10'3/uL 09/29/2024 11:33 PM CDT [facility] ABS. IMMATURE GRANULOCYTES 0.06(H) 0.00 - 0.03 x10'3/uL 09/29/2024 11:33 PM CDT [facility] ABS. NUCLEATED RBC'S 0.00 0.00 - 0.01 x10'3/uL 09/29/2024 11:33 PM CDT [facility] NRBC % 0.0 % 09/29/2024 11:33 PM CDT [facility] 09/29/2024 10:5 8 PM CDT Keturah J Bormann INDUSTRIAL CONTROLS TECHNICIAN LABORATORY Final Result [facility] [address] [place] [address], [id number] documented in this encounter Visit Diagnoses Diagnosis Headache- Primary Migraine Migraine, unspecified, without mention of intractable migraine without mention of status migrainosus documented in this encounter Administered Medications Inactive Administered Medications - up to 3 most recent administrations Medication Order MAR Action Action Date Dose Rate Site diphenhydrAMINE (BENADRYL) injection 25 mg 25 mg, Intravenous, Once, 1 dose, On Sun09/29/24 at 2130, For IV administration, give no faster than 25 mg/min. Given 09/29/2024 11:06 PM CDT 25 mg ketorolac (TORADOL) injection 15 mg 15 mg, Intravenous, Once, 1 dose, On Sun09/29/24 at 2230, For IV administration, give over 15 seconds. Given 09/29/2024 11:03 PM CDT 15 mg lactated ringers bolus infusion 500 mL 500 mL, Intravenous, Administer over 30 Minutes, Once, 1 dose, On Sun09/29/24 at 2230 New Bag 09/29/2024 11:01 PM CDT 500 mLs 1000 mL/hr metoclopramide (REGLAN) injection 2.5 mg 2.5 mg, Intravenous, Once, 1 dose, On Sun09/29/24 at 2215, Administer IV over 1-2 minutes Given 09/29/2024 11:05 PM CDT 2.5 mg normal saline 0.9 % flush 3-10 mL 3-10 mL, Intravenous, Every 8 hours, First dose on Sun09/29/24 at 2130, Until Discontinued Given 09/29/2024 11:08 PM CDT 10 mLs normal saline 0.9 % flush 3-10 mL 3-10 mL, Intravenous, As needed, Line care, Starting on Sun09/29/24 at 2115, Until Sun09/30/24 at 0257 documented in this encounter Active and Recently Administered Medications Times are shown in CDT. Scheduled Medication Order 09/28/2024 09/29/2024 09/30/2024 diphenhydrAMINE (BENADRYL) injection 25 mg (COMPLETED) 25 mg, Intravenous, Once, 1 dose, On Sun09/29/24 at 2130, For IV administration, give no faster than 25 mg/min. 2306 (Given - Provider: Daxa Gordon RN) ketorolac (TORADOL) injection 15 mg (COMPLETED) 15 mg, Intravenous, Once, 1 dose, On Sun09/29/24 at 2230, For IV administration, give over 15 seconds. 2303 (Given - Provider: Daxa Gordon RN) lactated ringers bolus infusion 500 mL (COMPLETED) 500 mL, Intravenous, Administer over 30 Minutes, Once, 1 dose, On Sun09/29/24 at 2230 2301 (New Bag - Provider: Daxa Gordon RN) 0025 (Infusion Stop Time - Provider: Mera Samaniego RN) metoclopramide (REGLAN) injection 2.5 mg (COMPLETED) 2.5 mg, Intravenous, Once, 1 dose, On Sun09/29/24 at 2215, Administer IV over 1-2 minutes 2305 (Given - Provider: Daxa Gordon RN) normal saline 0.9 % flush 3-10 mL 3-10 mL, Intravenous, Every 8 hours, First dose on Sun09/29/24 at 2130, Until Discontinued 2308 (Given - Provider: Daxa Gordno RN) PRN Medication Order 09/28/2024 09/29/2024 09/30/2024 normal saline 0.9 % flush 3-10 mL 3-10 mL, Intravenous, As needed, Line care, Starting on Sun09/29/24 at 2115, Until Sun09/30/24 at 0257 documented in this encounter Care Teams Dispatcher Tow Truck Relationship Specialty Start Date End Date Cori Collins PA-C [address] [place] [phone] PCP - General PHYSICIAN AMBULATORY CARE NURSE 09/29/24 documented as of this encounter
--- OUTSIDE RECORDS SUMMARY | 2024-09-30 17:15 | XMS_ITS | Referral Summary ---
Author Organization 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
--- OUTSIDE RECORDS SUMMARY | 2024-09-30 17:15 | XMS_ITS | Clinical Summary ---
Author Organization [facility] Address [address] [place] [address] Care Team Providers Care Health Facilities Surveyor Name Role Phone Cori Collins PA-C Primary Care Provider +1- [phone] Allergies No known active allergies Medications No known medications Encounters Date Type Department Care Team Description 09/29/2024 9:55 PM CDT - 09/30/2024 12:51 AM CDT Emergency [facility] Emergency [address] [place] [address] Areli Blair MD Headache Discharge Disposition: Home or Self Care (Routine Discharge) 09/29/2024 Travel from Last 3 Months Social History Tobacco Use Types Packs/Day Years Used Date Smoking Tobacco: Never Assessed Comments Unknown Sex and Gender Information Value Date Recorded Sex Assigned at Female 09/30/2024 12:15 AM CDT Legal Sex Female 8:18 PM CDT Gender Identity Not on file Sexual Orientation Not on file Last Filed Vital Signs Vital Sign Reading [...] Mass Index 24.03 09/29/2024 8:21 PM CDT Plan of Treatment Health Maintenance Due Date Last Done Comments Annual Physical 2007 Hepatitis C 2022 COVID-19 Vaccine (3 2023- season) 2024 10/11/2020, 09/20/2020 DTaP, Tdap and Td Vaccines (7 - Td or Tdap) 01/12/2025 01/12/2015, 01/06/2010, 09/10/2006, Additional history exists Pneumococcal Vaccine: Pediatrics (0 to 5 Years) and At-Risk Patients (6 to 64 Years) Completed 09/27/2005, 2004, 2004, Additional history exists Hepatitis B Vaccines Completed 09/10/2006, 2004, 2004, Additional history exists HPV Vaccines Completed 12/11/2017, 01/30/2017 Meningococcal Vaccine Completed 12/06/2021, 016 Meningococcal B Vaccine Completed 12/21/2022, 12/06 RSV Immunizations Under 20 Months Aged Out No longer eligible based on patient's age to complete this topic Procedures Procedure Name Priority Date/Time Associated Diagnosis Comments HCG QUANT (SERUM)-CHORIONIC GONADOTROPIN STAT 09/29/2024 10:58 PM CDT COMPREHENSIVE METABOLIC PANEL STAT 09/29/2024 10:58 PM CDT CBC W/DIFF AUTOMATED STAT 09/29/2024 10:58 PM CDT from Last 3 Months Results * COMPREHENSIVE METABOLIC PANEL (09/29/2024 10:58 PM CDT) SODIUM S/P/B 139 136 - 145 MMOL/L 09/29/2024 11:42 PM CDT [facility] POTASSIUM S/P/B 3.5 3.5 - 5.1 MMOL/L 09/29/2024 11:42 PM CDT [facility] CHLORIDE S/P/B 107 97 - 115 MMOL/L 09/29/2024 11:42 PM CDT [facility] CO2 26.4 21.0 - 32.0 MMOL/L 09/29/2024 11:42 PM CDT [facility] GLUCOSE 83 74 - 106 MG/DL 09/29/2024 11:42 PM T [facility] BUN 14 7 - 18 MG/DL 09/29/2024 11:42 PM CDT [facility] CREATININE S/P/B 0.74 0.55 - 1.02 MG/DL 09/29/2024 11:42 PM CDT [facility] CALCIUM S/P/B 9.2 8.5 - 10.1 MG/DL 09/29/2024 11:42 PM CDT [facility] BILIRUBIN TOTAL S/P/B 0.4 0.2 - 1.0 MG/DL 09/29/2024 11:42 PM T [facility] ALKALINE PHOSPHATASE S/P/B 86 52 - 144 U/L 09/29/2024 11:42 PM T [facility] AST 24 15 - 37 U/L 09/29/2024 11:42 PM T [facility] ALT 30 13 - 56 U/L 09/29/2024 11:42 PM T [facility] TOTAL PROTEIN S/P/B 7.1 6.4 - 8.2 G/DL 09/29/2024 11:42 PM T [facility] ALBUMIN S/P/B 3.7 3.4 - 5.0 G/DL 09/29/2024 11:42 PM T [facility] ANION GAP 5.6 2.0 - 10.0 MMOL/L 09/29/2024 11:42 PM T [facility] OSMOLALITY (CALC) 288 MOSM/KG 025 11:42 PM T [facility] Comment:REFERENCE RANGE NOT ESTABLISHED GFR ESTIMATE >90 >90 ML/MIN/1. 73 M2 09/29/2024 11:42 PM T [facility] GFR NOTES GFR REFERENCE S: 09/29/2024 11:42 PM CDT [facility] Comment: THE ESTIMATED GFR IS CALCULATED [...] CDT Keturah Garcia NP LABORATORY Final Result Performing Organization Address [facility]/ZIP Co de Phone Number [facility] [address] [place] [address], [phone] * HCG QUANT SERUM - CHORIONIC GONADOTROPIN () (09/29/2024 10:58 PM CDT) Pathologist [facility] HCG QUANTITATIVE <1 MIU/ML 09/30/19 11:44 PM CDT [facility] Comment: <5 IS NEGATIVE 5-25 IS BORDERLINE >25 IS POSITIVE ASSAY PERFORMED BY CHEMILUMINESCENCE METHODOLOGY USING SIEMENS DIMENSION VISTA REAGENT. PATIENT RESULTS DETERMINED BY ASSAYS USING DIFFERENT MANUFACTURERS FOR METHODS MAY NOT BE COMPARABLE. 09/29/2024 10:5 8 PM CDT Areli Kathleen MD LABORATORY Fin al Result Performing Organization Address [facility] Co de Phone Number [facility] [address] [place] [address], [phone] * (ABNORMAL) CBC W/DIFF AUTOMATED (09/29/2024 10:58 PM CDT) Pathologist [facility] WBC 9.07 4.00 - 10.80 x10'3/uL 09/29/2024 11:33 PM CDT [facility] RBC 4.32 4.10 - 5.40 x10'6/uL 09/29/2024 11:33 PM CDT [facility] HGB 12.4 12.0 - 16.0 G/DL 09/29/2024 11:33 PM CDT [facility] HCT 38.3 36.0 - 47.0 % 09/29/2024 11:33 PM CDT [facility] MCV 88.7 78.0 - 100.0 FL 09/29/2024 11:33 PM CDT [facility] MCH 28.7 27.0 - 31.0 PG 09/29/2024 11:33 PM CDT [facility] MCHC 32.4(L) 33.0 - 36.0 G/DL 09/29/2024 11:33 PM CDT [facility] RDW 13.2 11.5 - 14.5 % 09/29/2024 11:33 PM CDT [facility] PLT 266 150 - 350 x10'3/uL 09/29/2024 11:33 PM CDT [facility] MPV 10.8(H) 7.4 - 10.4 FL 09/29/2024 11:33 PM CDT [facility] DIFFERENTIAL TYPE AUTOMATED DIFFERENTIAL 09/29/2024 11:33 PM CDT [facility] SEG NEUTROPHILS 48.3 % 11:33 PM CDT [facility] LYMPHOCYTES 42.7 % 09/29/2024 11:33 PM CDT [facility] MONOCYTES 6.0 % 09/29/2024 11:33 PM CDT [facility] EOSINOPHILS 1.9 % 09/29/2024 11:33 PM CDT [facility] BASOPHILS 0.4 % 09/29/2024 11:33 PM CDT [facility] IMMATURE GRANS % 0.7 % 09/30/19 11:33 PM CDT [facility] ABS. NEUTROPHILS 4.39 1.60 - 8.30 x10'3/uL 09/29/2024 11:33 PM CDT [facility] ABS. LYMPHOCYTES 3.87 0.80 - 4.70 x10'3/uL 09/29/2024 11:33 PM CDT [facility] ABS. MONOCYTES 0.54 0.00 - 1.50 x10'3/uL 09/29/2024 11:33 PM CDT [facility] ABS. EOSINOPHILS 0.17 0.00 - 0.40 x10'3/uL 09/29/2024 11:33 PM CDT [facility] ABS. BASOPHILS 0.04 0.00 - 0.20 x10'3/uL 09/29/2024 11:33 PM CDT [facility] ABS. IMMATURE GRANULOCYTES 0.06(H) 0.00 - 0.03 x10'3/uL 09/29/2024 11:33 PM CDT [facility] ABS. NUCLEATED RBC'S 0.00 0.00 - 0.01 x10'3/uL 09/29/2024 11:33 PM CDT [facility] NRBC % 0.0 % 09/29/2024 11:33 PM CDT [facility] 09/29/2024 10:5 8 PM CDT us Keturah Garcia NP LABORATORY Final Result [facility] [address] [place] [address], [phone] from Last 3 Months Insurance [facility] C/O PROVIDER SERVICES DANIELLA VELASQUEZ [id number] Care Teams Health Facilities Surveyor Relationship Specialty Start Date End Date Cori Collins PA-C [address] [place] [phone] PCP - General PHYSICIAN TRAY DRIER 09/29/24
--- OUTSIDE RECORDS SUMMARY | 2024-09-30 17:15 | XMS_ITS | Clinical Summary ---
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 Gender Identity Not on file Sexual Orientation Not on file Plan of Treatment Health Maintenance Due Date Last Done Comments Depression Screening 2004 Hepatitis C Screening 2004 Regular Well Visit/Exam 18-64 2022 Covid-19 Vaccine (2023-2 5 season) 2024 10/11/2020, 09/20/2020 Influenza Vaccine (#1) 2024 04/03/2023 DTaP/Tdap/Td Vaccine (7 - Td or Tdap) 01/12/2025 01/12/2015, 01/06/2010, 09/10/2006, Additional history exists Pneumococcal vaccine <65 Completed 006, 2004, 2004, Additional history exists Hepatitis B Screening Completed 09/10/2006 , 2004, 2004, Additional history exists Varicella Vaccines Completed 01/06/2010, 09/27/2005 HPV Vaccines Completed 12/11/2017, 01/30/2017 Meningococcal Vaccine Completed 12/06/2021, 016 Meningococcal B Vaccine Completed 12/21/2022, 12/06 Care Teams Ict Security Specialist Relationship Specialty Start Date End Date Unknown, Notinfile PCP - General 07/25/23
--- OUTSIDE RECORDS SUMMARY | 2024-09-30 17:15 | XMS_ITS | Encounter Summary ---
Author Organization [facility] Address [address] [place] [address] Care Team Providers Care Airline Mechanic Name Role Phone Cori Collins PA-C Primary Care Provider +1- [phone] Encounter Details Date Type Department Care Team (Latest Contact Info) Description 09/29/2024 Travel Social History Tobacco Use Types Packs/Day Years Used Date Smoking Tobacco: Never Assessed Comments Unknown Sex and Gender Information Value Date Recorded Sex Assigned at Female 09/30/2024 12:15 AM CDT Legal Sex Female 8:18 PM CDT Gender Identity Not on file Sexual Orientation Not on file documented as of this encounter Plan of Treatment Not on file documented as of this encounter Visit Diagnoses Not on filedocumented in this encounter Care Teams Airline Mechanic Relationship Specialty Start Date End Date Cori Collins PA-C [address] [place] [phone] PCP - General PHYSICIAN PRODUCT SAFETY EXPERT 09/29/24 documented as of this encounter
--- NOTE | 2024-09-30 17:43 | ED.HA ---
HPI - Headache General Chief Complaint: Headache <Zulma Reyes PA-C - Last Filed: 10/03/24 18:07> Stated Complaint: headache <Zulma Reyes PA-C - Last Filed: 10/03/24 18:07> Time Seen by Provider: 09/30/24 17:43 <Zulma Reyes PA-C - Last Filed: 10/03/24 18:07> Focused HPI: This is a 19 year old female that presents to the ER for a migraine that has been ongoing over the last 5 days. Reports it has been constant, occasionally is sharp/more severe. Reports associated dizziness. Reports she was seen at another hospital for this last night and had a migraine cocktail. Reports it did not help at all. Reports family history of brain tumors. GENERAL: Well-appearing, well-nourished, and in no acute distress. HEAD: Normocephalic, atraumatic. CHEST: Clear to auscultation. ?No respiratory distress. HEART: Regular rate and rhythm.? NEURO: ?Alert and oriented x3. Normal gait Patient screened in triage and initial orders placed.? ?Additional care and disposition to be based upon?diagnostic testing and treatment. <Zulma Reyes PA-C - Last Filed: 10/03/24 18:07> History of Present Illness HPI Narrative: HPI as in medical screening exam above. She denies change or loss of vision. She complains of intermittent short-lived vertigo, aggravated by head movement. She has no other complaints at this time. <Arnol Acosta MD - Last Filed: 09/30/24 21:23> Related Data Home Medications: Home Medications ?Medication ?Instructions ?Recorded ?Confirmed ?Last Taken ?Type bupropion HCl 150 mg 24 hr tablet, 150 mg PO DAILY 03/21/24 03/30/24 03/21/24 History extended release <Zulma Reyes PA-C - Last Filed: 10/03/24 18:07> Allergies/Adverse Reactions: Allergies Allergy/AdvReac Type Severity Reaction Status Date / Time No Known Allergies Allergy Mild Verified 09/30/24 17:10 <VIDYA Blackburn Last Filed: 10/03/24 18:07> Review of Systems Review of Systems: IUD in place <Arnol Acosta MD - Last Filed: 09/30/24 21:23> All systems reviewed & are unremarkable except as noted in HPI and below <Arnol Acosta MD - Last Filed: 09/30/24 21:23> PMFSH Past Medical History Medical History: Medical History Acute appendicitis <Zulma Reyes PA-C - Last Filed: 10/03/24 18:07> Surgical History Surgical History: Surgical History History of appendectomy <Zulma Reyes PA-C - Last Filed: 10/03/24 18:07> Family History Family History: Family History Grandparent Cerebrovascular accident Acute myocardial infarction Grandparent Congestive heart failure Grandparent Brain tumor <Zulma Reyes PA-C - Last Filed: 10/03/24 18:07> Social History Social History: Social History Smoking status: Never smoker Alcohol intake: never Substance use: never Do You Feel Safe in your Home?: Yes Lack of Transportation: No Lack of Food: Never True Current Housing: I Have Housing Concerned About Future Housing: No Difficulty Paying Gas/Electric Bills: No Difficulty Paying for Meds: No Currently Unemployed: No Education: High School Diploma/GED Difficulty w/ Childcare or Family Care: No Spiritual care concerns: No <Zulma Reyes PA-C - Last Filed: 10/03/24 18:07> Exam Narrative: GENERAL: Well-developed, well-nourished, and in no acute distress. HEAD: Normocephalic, atraumatic. EYES: PERRLA and EOMI. Funduscopic exam unremarkable ENT: Nares clear, no rhinorrhea or epistaxis. Mucous membranes moist. Oropharynx without tonsillar hypertrophy exudate or other lesions. Bilateral TMs pearly hammond nonbulging NECK: Supple. Head impulse test negative CHEST: Clear to auscultation. No respiratory distress. No wheezes rales or rhonchi HEART: Regular rate and rhythm. No murmur heard. Normal peripheral pulses. ABDOMEN: Soft, nontender, nondistended, normal active bowel sounds. EXTREMITIES: Normal range of motion. No edema. SKIN: Warm, dry, no rash. NEURO: Alert and oriented x3. No focal deficit. Moving all 4 limbs spontaneously. HINTS exam not concerning for focal deficit PSYCH: Normal mood and affect. <Arnol Acosta MD - Last Filed: 09/30/24 21:23> Course Course Emergency Course: 21:20 - CT head unremarkable. On re-evaluation for migraine cocktail, the patient states she feels improved. Patient's exam is not concerning for papilledema. I advised the patient follow-up with her primary care doctor and discuss further imaging given her family history. I discussed the findings and recommendations with the patient. Discussed return and emergency precautions including signs/symptoms of focal neural deficit and vision changes. The patient voiced understanding and agreement with the plan. All questions answered to her satisfaction. <Arnol Acosta MD - Last Filed: 09/30/24 21:23> Vital Signs Vital signs: Vital Signs Temperature 97.0 F L 09/30/24 17:07 Pulse Rate 84 09/30/24 17:07 Respiratory Rate 18 09/30/24 17:07 Blood Pressure 112/66 09/30/24 17:07 Pulse Oximetry 98 09/30/24 17:07 Oxygen Delivery Room Air 09/30/24 17:07 Temperature 97.0 F L 09/30/24 17:07 Pulse Rate 68 09/30/24 21:45 Respiratory Rate 16 09/30/24 21:45 Blood Pressure 110/72 09/30/24 21:45 Pulse Oximetry 98 09/30/24 21:45 Oxygen Delivery Room Air 09/30/24 17:07 <Zulma Reyes PA-C - Last Filed: 10/03/24 18:07> Vital Signs Temperature 97.0 F L 09/30/24 17:07 Pulse Rate 84 09/30/24 17:07 Respiratory Rate 18 09/30/24 17:07 Blood Pressure 112/66 09/30/24 17:07 Pulse Oximetry 98 09/30/24 17:07 Oxygen Delivery Room Air 09/30/24 17:07 Temperature 97.0 F L 09/30/24 17:07 Pulse Rate 68 09/30/24 21:45 Respiratory Rate 16 09/30/24 21:45 Blood Pressure 110/72 09/30/24 21:45 Pulse Oximetry 98 09/30/24 21:45 Oxygen Delivery Room Air 09/30/24 17:07 <Arnol Acosta MD - Last Filed: 09/30/24 21:23> MDM - Headache MDM Narrative Medical decision making narrative: Plan: Imaging, pain control, reassess <Arnol Acosta MD - Last Filed: 09/30/24 21:23> Differential Diagnosis Differential diagnosis: Likely migraine, tension headache and other (Intra, intracranial mass, other) <Arnol Acosta MD - Last Filed: 09/30/24 21:23> Imaging Data Radiologist's impression: ITS Impressions Head CT 09/30/24 18:10 Impression: No acute intracranial hemorrhage or suspicious mass effect. <Zulma Reyes PA-C - Last Filed: 10/03/24 18:07> Critical Care Time Critical Care Time Critical Care Time: No <Zumla Reyes PA-C - Last Filed: 10/03/24 18:07> Discharge Plan Discharge Clinical Impression: Headache Qualifiers: Headache type: unspecified Headache chronicity pattern: acute headache Intractability: not intractable Qualified Code(s): R51.9 - Headache, unspecified <Zulma Reyes PA-C - Last Filed: 10/03/24 18:07> Patient Disposition: Home <Zulma Reyes PA-C - Last Filed: 10/03/24 18:07> Condition: Stable <Zulma Reyes PA-C - Last Filed: 10/03/24 18:07> Instructions: Antibiotic Form, Acute Headache (ED) <Zulma Reyes PA-C - Last Filed: 10/03/24 18:07> Additional Instructions: You were seen in the emergency department. A CT scan of the brain was not concerning for mass or bleeding. Considering her family history, recommend discussing further imaging with your primary care doctor. If you develop loss of vision, vertigo, weakness/numbness, loss of consciousness, or if you have other emergent concerns for life, limb, or eyesight, return to the emergency department. <Zulma Reyes PA-C - Last Filed: 10/03/24 18:07> Patient Language: Montenegrin <Zulma Reyes PA-C - Last Filed: 10/03/24 18:07> Prescriptions: No Action bupropion HCl 150 mg tablet extended release 24 hr 150 mg PO DAILY dicyclomine 20 mg tablet 20 mg PO TID PRN (Reason: Abdominal Discomfort) Qty: 15 0RF ondansetron 4 mg tablet,disintegrating 4 mg PO Q8H PRN (Reason: nausea and vomiting) Qty: 15 0RF <Zulma Reyes PA-C - Last Filed: 10/03/24 18:07> Follow-up/Referrals: Karina,DANIELLA Persaud [Primary Care Provider] - 1 Week <Zulma Reyes PA-C - Last Filed: 10/03/24 18:07> Time of Disposition: 21:25 <Zulma Reyes PA-C - Last Filed: 10/03/24 18:07> 21:25 <Arnol Acosta MD - Last Filed: 09/30/24 21:23>
--- OUTSIDE RECORDS SUMMARY | 2024-09-30 19:58 | XMS_ITS | Encounter Summary ---
Author Organization [facility] Address [address] [place] [id number] Care Team Providers Care Chemical Etching Processor Name Role Phone Cori Collins PA-C Primary Care Provider +1- [phone] Reason for Visit * Reason Comments Headache Encounter Details Date Type Department Care Team (Late st Contact Info) Description 09/29/2024 9:55 PM CDT - 09/30/2024 12:51 AM CDT Emergency [facility] [address] [place] [address] Areli Kathleen MD [address] [place] [id number] Headache Discharge Disposition: Home or Self [...] through Care Everywhere. * Headache, Adult ED (Liberian) * Migraine in adults (Liberian) documented in this encounter ED Notes * [...] CHORIONIC GONADOTROPIN () (09/29/2024 10:58 PM CDT) [facility] HCG QUANTITATIVE <1 MIU/ML 09/30/19 11:44 PM CDT [facility] Comment: <5 IS NEGATIVE 5-25 IS BORDERLINE >25 IS POSITIVE ASSAY PERFORMED BY CHEMILUMINESCENCE METHODOLOGY USING SIEMENS DIMENSION VISTA REAGENT. PATIENT RESULTS DETERMINED BY ASSAYS USING DIFFERENT MANUFACTURERS FOR METHODS MAY NOT BE COMPARABLE. 09/29/2024 10:5 8 PM CDT us Areli Kathleen MD LABORATORY Fin al Result [facility] [address] [place] [address], [phone] * COMPREHENSIVE METABOLIC PANEL (09/29/2024 10:58 PM CDT) [facility] SODIUM S/P/B 139 136 - 145 MMOL/L 09/29/2024 11:42 PM CDT [facility] POTASSIUM S/P/B 3.5 3.5 - 5.1 MMOL/L 09/29/2024 11:42 PM CDT [facility] CHLORIDE S/P/B 107 97 - 115 MMOL/L 09/29/2024 11:42 PM CDT [facility] CO2 26.4 21.0 - 32.0 MMOL/L 09/29/2024 11:42 PM CDT [facility] GLUCOSE 83 74 - 106 MG/DL 09/29/2024 11:42 PM CDT [facility] BUN 14 7 - 18 MG/DL 09/29/2024 11:42 PM CDT [facility] CREATININE S/P/B 0.74 0.55 - 1.02 MG/DL 09/29/2024 11:42 PM CDT [facility] CALCIUM S/P/B 9.2 8.5 - 10.1 MG/DL 09/29/2024 11:42 PM CDT [facility] BILIRUBIN TOTAL S/P/B 0.4 0.2 - 1.0 MG/DL 09/29/2024 11:42 PM CDT [facility] ALKALINE PHOSPHATASE S/P/B 86 52 - 144 U/L 09/29/2024 11:42 PM CDT [facility] AST 24 15 - 37 U/L 09/29/2024 11:42 PM CDT [facility] ALT 30 13 - 56 U/L 09/29/2024 11:42 PM CDT [facility] TOTAL PROTEIN S/P/B 7.1 6.4 - 8.2 G/DL 09/29/2024 11:42 PM CDT [facility] ALBUMIN S/P/B 3.7 3.4 - 5.0 G/DL 09/29/2024 11:42 PM CDT [facility] ANION GAP 5.6 2.0 - 10.0 MMOL/L 09/29/2024 11:42 PM CDT [facility] OSMOLALITY (CALC) 288 MOSM/KG 025 11:42 PM T [facility] Comment:REFERENCE RANGE NOT ESTABLISHED GFR ESTIMATE >90 >90 ML/MIN/1. 73 M2 09/29/2024 11:42 PM T [facility] GFR NOTES GFR REFERENCE S: 09/29/2024 11:42 PM T [facility] Comment: THE ESTIMATED GFR IS [...] CDT Keturah Garcia NP LABORATORY Final Result [facility] [address] [place] [address], [phone] * (ABNORMAL) CBC W/DIFF AUTOMATED (09/29/2024 10:58 PM CDT) WBC 9.07 4.00 - 10.80 x10'3/uL 09/29/2024 11:33 PM CDT [facility] RBC 4.32 4.10 - 5.40 x10'6/uL 09/29/2024 11:33 PM CDT [facility] HGB 12.4 12.0 - 16.0 G/DL 09/29/2024 11:33 PM CDT [facility] HCT 38.3 36.0 - 47.0 % 09/29/2024 11:33 PM CDT [facility] MCV 88.7 78.0 - 100.0 FL 09/29/2024 11:33 PM CDT [facility] MCH 28.7 27.0 - 31.0 PG 09/29/2024 11:33 PM CDT [facility] MCHC 32.4(L) 33.0 - 36.0 G/DL 09/29/2024 11:33 PM CDT [facility] RDW 13.2 11.5 - 14.5 % 09/29/2024 11:33 PM CDT [facility] PLT 266 150 - 350 x10'3/uL 09/29/2024 11:33 PM CDT [facility] MPV 10.8(H) 7.4 - 10.4 FL 09/29/2024 11:33 PM CDT [facility] DIFFERENTIAL TYPE AUTOMATED DIFFERENTIAL 09/29/2024 11:33 PM CDT [facility] SEG NEUTROPHILS 48.3 % 11:33 PM CDT [facility] LYMPHOCYTES 42.7 % 09/29/2024 11:33 PM CDT [facility] MONOCYTES 6.0 % 09/29/2024 11:33 PM CDT [facility] EOSINOPHILS 1.9 % 09/29/2024 11:33 PM CDT [facility] BASOPHILS 0.4 % 09/29/2024 11:33 PM CDT [facility] IMMATURE GRANS % 0.7 % 09/30/19 11:33 PM CDT [facility] ABS. NEUTROPHILS 4.39 1.60 - 8.30 x10'3/uL 09/29/2024 11:33 PM CDT [facility] ABS. LYMPHOCYTES 3.87 0.80 - 4.70 x10'3/uL 09/29/2024 11:33 PM CDT [facility] ABS. MONOCYTES 0.54 0.00 - 1.50 x10'3/uL 09/29/2024 11:33 PM CDT [facility] ABS. EOSINOPHILS 0.17 0.00 - 0.40 x10'3/uL 09/29/2024 11:33 PM CDT [facility] ABS. BASOPHILS 0.04 0.00 - 0.20 x10'3/uL 09/29/2024 11:33 PM CDT [facility] ABS. IMMATURE GRANULOCYTES 0.06(H) 0.00 - 0.03 x10'3/uL 09/29/2024 11:33 PM CDT [facility] ABS. NUCLEATED RBC'S 0.00 0.00 - 0.01 x10'3/uL 09/29/2024 11:33 PM CDT [facility] NRBC % 0.0 % 09/29/2024 11:33 PM CDT [facility] 09/29/2024 10:5 8 PM CDT Keturah J Bormann MEMBER CERTIFICATION MANAGER LABORATORY Final Result [facility] [address] [place] [address], [phone] documented in this encounter Visit Diagnoses Diagnosis [...] Until Discontinued 2308 (Given - Provider: Daxa Gordon RN) PRN Medication Order 09/28/2024 09/29/2024 09/30/2024 normal saline 0.9 % flush 3-10 mL 3-10 mL, Intravenous, As needed, Line care, Starting on Sun09/29/24 at 2115, Until Sun09/30/24 at 0257 documented in this encounter Care Teams Chemical Etching Processor Relationship Specialty Start Date End Date Cori Collins PA-C [address] [place] [phone] PCP - General PHYSICIAN GLUE WHEEL OPERATOR 09/29/24 documented as of this encounter
--- OUTSIDE RECORDS SUMMARY | 2024-09-30 19:58 | XMS_ITS | Referral Summary ---
Author Organization [facility] Virtual Care Address [address] [place] [phone] Phone Care Team Providers Care Pie Bottomer Name Role Phone Unknown, Tawana Primary Care Provider Unavail able Social History Tobacco Use Types Packs/Day Years Used Date Smoking Tobacco: Never Assessed Personal Safety Answer Date Recorded Getting School Help Needed Not on file 07/25 Comments Unknown Sex and Gender Information Value Date Recorded Sex Assigned at Not on file Legal Sex Female 11:33 AM AGRICULTURAL SPECIALIST Gender Identity Not on file Sexual Orientation Not on file Plan of Treatment Not on file Care Teams Pie Bottomer Relationship Specialty Start Date End Date Unknown, Tawana PCP - General 07/25/23
--- OUTSIDE RECORDS SUMMARY | 2024-09-30 19:58 | XMS_ITS | Encounter Summary ---
Author Organization [facility] Address [address] [place] [id number] Care Team Providers Care Life Insurance Sales Agent Name Role Phone Cori Collins PA-C Primary Care Provider +1- [phone] Encounter Details Date Type Department Care Team [...] on filedocumented in this encounter Care Teams Life Insurance Sales Agent Relationship Specialty Start Date End Date Cori Collins PA-C [address] [place] [phone] PCP - General PHYSICIAN SEQUENCING MACHINE OPERATOR 09/29/24 documented as of this encounter
--- OUTSIDE RECORDS SUMMARY | 2024-09-30 19:58 | XMS_ITS | Clinical Summary ---
Author Organization [facility] Address [address] [place] [address] Care Team Providers Care Bread Room Hand Name Role Phone Cori Collins PA-C Primary Care Provider +1- [phone] Allergies No known active allergies Medications No known medications Encounters Date Type Department Care Team Description 09/29/2024 9:55 PM CDT - 09/30/2024 12:51 AM CDT Emergency [facility] [address] [place] [address] Areli Blair MD Headache Discharge Disposition: Home [...] - 106 MG/DL 09/29/2024 11:42 PM T [facility] BUN 14 7 - 18 MG/DL 09/29/2024 11:42 PM CDT [facility] CREATININE S/P/B 0.74 0.55 - 1.02 MG/DL 09/29/2024 11:42 PM CDT [facility] CALCIUM S/P/B 9.2 8.5 - 10.1 MG/DL 09/29/2024 11:42 PM CDT [facility] BILIRUBIN TOTAL S/P/B 0.4 0.2 - 1.0 MG/DL 09/29/2024 11:42 PM T [facility] ALKALINE PHOSPHATASE S/P/B 86 52 - 144 U/L 09/29/2024 11:42 PM T [facility] AST 24 15 - 37 U/L 09/29/2024 11:42 PM T [facility] ALT 30 13 - 56 U/L 09/29/2024 11:42 PM T [facility] TOTAL PROTEIN S/P/B 7.1 6.4 - 8.2 G/DL 09/29/2024 11:42 PM T [facility] ALBUMIN S/P/B 3.7 3.4 - 5.0 G/DL 09/29/2024 11:42 PM T [facility] ANION GAP 5.6 2.0 - 10.0 MMOL/L 09/29/2024 11:42 PM T [facility] OSMOLALITY (CALC) 288 MOSM/KG 025 11:42 PM T [facility] Comment:REFERENCE RANGE NOT ESTABLISHED GFR ESTIMATE >90 >90 ML/MIN/1. 73 M2 09/29/2024 11:42 PM T [facility] GFR NOTES GFR REFERENCE S: 09/29/2024 11:42 PM CDT [facility] Comment: THE ESTIMATED [...] NP LABORATORY Final Result Performing Organization Address [facility]/ZIP Co de Phone Number [facility] [address] [place] [address], [phone] * HCG QUANT SERUM - CHORIONIC GONADOTROPIN () (09/29/2024 10:58 PM CDT) Pathologist [facility] HCG QUANTITATIVE <1 MIU/ML 09/30/19 11:44 PM CDT [facility] Comment: <5 IS NEGATIVE 5-25 IS BORDERLINE >25 IS POSITIVE ASSAY PERFORMED BY CHEMILUMINESCENCE METHODOLOGY USING SIEMENS DIMENSION VISTA REAGENT. PATIENT RESULTS DETERMINED BY ASSAYS USING DIFFERENT MANUFACTURERS FOR METHODS MAY NOT BE COMPARABLE. 09/29/2024 10:5 8 PM CDT Areli Kathleen MD LABORATORY Fin al Result Performing Organization Address [facility] Co de Phone Number [facility] [address] [place] [address], [phone] * (ABNORMAL) CBC W/DIFF AUTOMATED (09/29/2024 10:58 PM CDT) Pathologist [facility] WBC 9.07 4.00 - 10.80 x10'3/uL 09/29/2024 [...] CENTER LAB 09/29/2024 10:5 8 PM CDT us Keturah Garcia NP LABORATORY Final Result [facility] [address] [place] [address], [phone] from Last 3 Months Insurance [facility] C/O PROVIDER SERVICES DANIELLA VELASQUEZ [id number] Care Teams Bread Room Hand Relationship Specialty Start Date End Date Cori Collins PA-C [address] [place] [phone] PCP - General PHYSICIAN CAR RENTAL SERVICE ATTENDANT 09/29/24
--- OUTSIDE RECORDS SUMMARY | 2024-09-30 19:58 | XMS_ITS | Clinical Summary ---
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
[2024-09-30] MEDS: diphenhydrAMINE HCl INJ 50 MG/ML VIAL 25 MG IV PUSH (20:39)
[2024-09-30] MEDS: SODIUM CHLORIDE 0.9% IV 1,000 ML 999 ML IV CONT (20:39)
[2024-09-30] MEDS: PROCHLORPERAZINE EDISYLATE 10 MG/2 ML VIAL IV PUSH (20:39)
[2024-09-30] MEDS: KETOROLAC 30 MG/ML VIAL (*BKC) IV PUSH (20:39)
[2024-09-30 20:43] VITALS: BP 105/73; PULSE 67; RESP 14; O2SAT 100
[2024-09-30 21:45] VITALS: BP 110/72; PULSE 68; RESP 16; O2SAT 98
== END 2024-09-30 21:46 | disposition home or self-care (01) ==
PROVIDERS: Emergency Provider Preventive Medicine Aerospace Medicine; PCP Physician Assistant
DX: R51.9 Headache, unspecified (principal)
CPT/HCPCS: 70450; 96361; 96374; 96375; 99284; J0780; J1200; J1885; J7030